=== PATIENT | male | born 1940 | race Two or more races ===

== ENCOUNTER 2017-06-21 07:25 | Emergency (ER) | payer OTHER ==
[~2017-06-21] VITALS: Ht 167.6 cm; Wt 79.8 kg
[2017-06-21 08:26] VITALS: BP 139/85
[2017-06-21 08:41] LABS: Urine Bilirubin Negative (Negative); Urine Blood 2+ /uL (Negative); Urine Color Yellow (Yellow); Urine Glucose Normal (Normal); Urine Ketone Negative (Negative); Urine Mucus FEW (None Seen); Urine Nitrite POSITIVE (Negative); Urine RBC 58 /hpf (0 - 3); Urine Urobilinogen Normal (Negative); Urine WBC Clumps PRESENT /hpf (None Seen); Urine pH 5.5 (5.0-8.0)
== END 2017-06-21 10:04 | disposition home or self-care (01) ==
LOC: ER 07:25
DX: N39.0 Urinary tract infection, site not specified (principal); Z88.0 Allergy status to penicillin
CPT/HCPCS: 51702; 81001

== ENCOUNTER 2017-06-23 14:45 | Emergency (ER) | payer OTHER, MEDICAID ==
[~2017-06-23] VITALS: Ht 165.1 cm; Wt 83.5 kg
[2017-06-23 15:51] VITALS: BP 164/79
[2017-06-23] MEDS ORDERED: SODIUM CHLORIDE 0.9% 1,000 ML IV ONE (16:44)
[2017-06-23] MEDS ORDERED: TAMSULOSIN HYDROCHLORIDE 0.4 MG CAP PO ONE (16:45)
[2017-06-23] MEDS ORDERED: cefTRIAXone 1GM/10ml IVPUSH 10 ML IV ONE (18:00)
[2017-06-23 18:10] LABS: Urine Bilirubin Negative (Negative); Urine Blood TRACE /uL (Negative); Urine Glucose Normal (Normal); Urine Ketone Negative (Negative); Urine Nitrite POSITIVE (Negative); Urine RBC 1 /hpf (0 - 3); Urine Urobilinogen Normal (Negative); Urine pH 5.5 (5.0-8.0)
[2017-06-23 18:11] LABS: Urine Color LT. ORANGE (Yellow)
[2017-06-23 18:53] LABS: Basophils # (auto) 0 uL; Basophils % (auto) 0.2 % (0.0-2.0); Eosinophils # (auto) 0 uL; Eosinophils % (auto) 0.1 % (0.0-7.0); Hematocrit 40.6 % (41.0-53.0); Hemoglobin 14.3 g/dL (13.5-17.5); Lymphocytes # (auto) 1.5 uL; Lymphocytes % (auto) 10.5 % (10.0-50.0); Mean Corpuscular Hemoglobin 33.2 pg (28.0-32.0); Mean Corpuscular Hgb Conc. 35.2 g/dL (32.0-36.0); Mean Corpuscular Volume 94.5 fL (80.0-100.0); Mean Platelet Volume 9.8 fL (6.9-10.8); Monocytes % (auto) 7.4 % (0.0-12.0); Neutrophils # (auto) 11.6 uL; Neutrophils % (auto) 81.8 % (37.0-80.0); Platelet Count (auto) 136 10^3/uL (140-450); Red Cell Distribution Width 13.6 % (11.8-14.3); White Blood Cell 14.1 10^3/uL (4.4-10.8)
[2017-06-23 18:59] LABS: Calcium 7.9 mg/dL (8.5-10.1); Magnesium 2.3 mg/dL (1.6-2.6); Potassium 3.3 mmol/L (3.5-5.1)
[2017-06-23 19:00] LABS: BUN/Creatinine Ratio 14.1
== END 2017-06-23 19:04 | disposition home or self-care (01) ==
LOC: ER 14:45
DX: N39.0 Urinary tract infection, site not specified (principal); N40.1 Benign prostatic hyperplasia with lower urinary tract symptoms; R39.11 Hesitancy of micturition; Z88.0 Allergy status to penicillin
CPT/HCPCS: 36415; 51702; 74000; 80048; 81001; 83735; 85025; 96361; 96374; 99285; J7030; 96365

== ENCOUNTER 2017-08-02 21:25 | Emergency (ER) | payer OTHER, MEDICAID ==
[~2017-08-02] VITALS: Ht 152.4 cm; Wt 68.0 kg
[2017-08-02 23:12] LABS: Basophils # (auto) 0 uL; Basophils % (auto) 0.8 % (0.0-2.0); Eosinophils # (auto) 0.1 uL; Eosinophils % (auto) 0.9 % (0.0-7.0); Hemoglobin 15.5 g/dL (13.5-17.5); Lymphocytes # (auto) 1.9 uL; Lymphocytes % (auto) 33.5 % (10.0-50.0); Mean Corpuscular Hemoglobin 32.4 pg (28.0-32.0); Mean Corpuscular Hgb Conc. 34.3 g/dL (32.0-36.0); Mean Corpuscular Volume 94.5 fL (80.0-100.0); Monocytes # (auto) 0.6 uL; Monocytes % (auto) 9.9 % (0.0-12.0); Neutrophils # (auto) 3.2 uL; Neutrophils % (auto) 54.9 % (37.0-80.0); Nucleated Red Blood Cells % 0.1 %; Platelet Count (auto) 128 10^3/uL (140-450); Red Blood Cells 4.77 10^6/uL (4.5-5.90); Red Cell Distribution Width 13.7 % (11.8-14.3); White Blood Cell 5.8 10^3/uL (4.4-10.8)
[2017-08-02 23:31] LABS: Albumin 3.8 g/dL (3.4-5.0); BUN/Creatinine Ratio 16.9; Calcium 8.6 mg/dL (8.5-10.1); Potassium 3.3 mmol/L (3.5-5.1)
[2017-08-02 23:34] LABS: Bilirubin, Total 0.4 mg/dL (0.2-1.0); Total Protein 7.9 g/dL (6.4-8.2)
[2017-08-02 23:43] LABS: Urine Bacteria FEW /hpf (None Seen); Urine Blood 2+ /uL (Negative); Urine Specific Gravity 1.009 (1.001-1.035); Urine WBC 2 /hpf (0 - 3)
[2017-08-03 05:18] VITALS: BP 144/81
== END 2017-08-03 05:20 | disposition home or self-care (01) ==
LOC: ER 21:25
DX: N40.1 Benign prostatic hyperplasia with lower urinary tract symptoms (principal); R33.9 Retention of urine, unspecified; Z88.0 Allergy status to penicillin
CPT/HCPCS: 36415; 51702; 74176; 80053; 81001; 84154; 85025

== ENCOUNTER 2019-08-17 12:48 | Emergency (ER) | payer OTHER, MEDICAID ==
[~2019-08-17] VITALS: Ht 167.6 cm; Wt 81.6 kg
[2019-08-17 16:45] VITALS: BP 140/80
== END 2019-08-17 17:15 | disposition home or self-care (01) ==
LOC: ER 12:48
DX: K04.7 Periapical abscess without sinus (principal); Z88.0 Allergy status to penicillin

== ENCOUNTER 2021-04-14 11:41 | Inpatient (IN) | payer OTHER, MEDICAID ==
[~2021-04-14] VITALS: Ht 165.1 cm; Wt 95.0 kg
[2021-04-14 12:55] LABS: Basophils # (auto) 0.1 10 ^3/uL (0-0.2); Basophils % (auto) 0.8 % (0.0-2.0); Eosinophils # (auto) 0.2 10 ^3/uL (0-0.8); Eosinophils % (auto) 2.6 % (0.0-7.0); Hematocrit 41.7 % (41.0-53.0); Hemoglobin 13.5 g/dL (13.5-17.5); Lymphocytes # (auto) 2.8 10 ^3/uL (0.4-5.4); Lymphocytes % (auto) 40.5 % (10.0-50.0); Mean Corpuscular Hemoglobin 31.9 pg (28.0-32.0); Mean Corpuscular Hgb Conc. 32.4 g/dL (32.0-36.0); Mean Corpuscular Volume 98.3 fL (80.0-100.0); Monocytes # (auto) 0.8 10 ^3/uL (0-1.3); Monocytes % (auto) 11.5 % (0.0-12.0); Neutrophils % (auto) 44.6 % (37.0-80.0); Nucleated Red Blood Cells % 0.4 %; Red Blood Cells 4.24 10^6/uL (4.5-5.90); Red Cell Distribution Width 15.9 % (11.8-14.3); White Blood Cell 6.8 10^3/uL (4.4-10.8)
[2021-04-14 12:56] LABS: Albumin 1.9 g/dL (3.4-5.0); Potassium 3.9 mmol/L (3.5-5.1)
[2021-04-14 12:58] LABS: Lactic Acid w/Reflex 3.1 mmol/L (0.4-2.0)
[2021-04-14 13:02] LABS: BUN/Creatinine Ratio 16.8; Bilirubin, Total 1.8 mg/dL (0.2-1.0); Total Protein 5.6 g/dL (6.4-8.2)
[2021-04-14] MEDS ORDERED: IPRATROPIUM BROM 0.5 MG/2.5ML INH SOL NEB PRN (14:00)
[2021-04-14] MEDS ORDERED: NITROGLYCERIN 0.4 MG SL TAB SL PRN (14:00)
[2021-04-14] MEDS ORDERED: ACETAMINOPHEN 500 MG TAB PO PRN (14:00)
[2021-04-14] MEDS ORDERED: ALBUTEROL SULF 2.5 MG/0.5ML(0.5%) NEB SOLN NEB PRN (14:00)
[2021-04-14] MEDS ORDERED: ONDANSETRON HCL 4 MG/2 ML VIAL IV PRN (14:00)
[2021-04-14] MEDS ORDERED: MORPHINE SULFATE INJECTION 2 MG/ML SYRG IV PRN ×2 (14:00)
[2021-04-14] MEDS ORDERED: IOHEXOL 350 MG/ML 100ML IJ ONE (14:04)
[2021-04-14] MEDS: SODIUM CHLORIDE 0.9% 1,000 ML IV SCH (15:17)
[2021-04-14 17:59] VITALS: BP 129/66
[2021-04-14 23:45] VITALS: BP 111/81
[2021-04-15] MEDS ORDERED: POTA10TA51 PO (02:00)
[2021-04-15] MEDS ORDERED: FURO1TAB31 PO (02:00)
[2021-04-15] MEDS: SODIUM CHLORIDE 0.9% 1,000 ML IV SCH ×2 (03:43→16:25)
[2021-04-15 05:00] VITALS: BP 129/70
[2021-04-15 06:32] LABS: Albumin 1.3 g/dL (3.4-5.0); BUN/Creatinine Ratio 22.5; Bilirubin, Total 1.5 mg/dL (0.2-1.0); Calcium 7.6 mg/dL (8.5-10.1); Total Protein 4.5 g/dL (6.4-8.2)
[2021-04-15 06:45] LABS: Basophils # (auto) 0 10 ^3/uL (0-0.2); Basophils % (auto) 0.8 % (0.0-2.0); Eosinophils # (auto) 0.2 10 ^3/uL (0-0.8); Eosinophils % (auto) 3.6 % (0.0-7.0); Hematocrit 39.3 % (41.0-53.0); Hemoglobin 12.4 g/dL (13.5-17.5); Lymphocytes # (auto) 1.7 10 ^3/uL (0.4-5.4); Lymphocytes % (auto) 30.5 % (10.0-50.0); Mean Corpuscular Hemoglobin 32.1 pg (28.0-32.0); Mean Corpuscular Hgb Conc. 31.6 g/dL (32.0-36.0); Mean Corpuscular Volume 101.3 fL (80.0-100.0); Monocytes # (auto) 0.6 10 ^3/uL (0-1.3); Monocytes % (auto) 11.1 % (0.0-12.0); Nucleated Red Blood Cells % 0.5 %; Red Blood Cells 3.88 10^6/uL (4.5-5.90); Red Cell Distribution Width 16.2 % (11.8-14.3); White Blood Cell 5.5 10^3/uL (4.4-10.8)
[2021-04-15 09:00] VITALS: BP 11/67
[2021-04-15] MEDS: ENOXAPARIN SOD 40 MG/0.4 ML SYRINGE SC SCH (10:00)
[2021-04-15] MEDS: levoFLOXacin 500MG 100 ML IV SCH (11:13)
[2021-04-15 12:05] LABS: INR 1.28 (0.9-1.15); Partial Thromboplastin Time 27.2 sec (23.6-33.0)
[2021-04-15 17:00] VITALS: BP 116/64
[2021-04-15 22:00] VITALS: BP 121/73
[2021-04-16 05:27] LABS: Basophils # (auto) 0 10 ^3/uL (0-0.2); Basophils % (auto) 0.8 % (0.0-2.0); Eosinophils # (auto) 0.2 10 ^3/uL (0-0.8); Eosinophils % (auto) 3.5 % (0.0-7.0); Hematocrit 38.6 % (41.0-53.0); Hemoglobin 12.7 g/dL (13.5-17.5); Lymphocytes # (auto) 1.9 10 ^3/uL (0.4-5.4); Lymphocytes % (auto) 31.9 % (10.0-50.0); Mean Corpuscular Hemoglobin 32.4 pg (28.0-32.0); Mean Corpuscular Hgb Conc. 32.9 g/dL (32.0-36.0); Mean Corpuscular Volume 98.4 fL (80.0-100.0); Monocytes # (auto) 0.5 10 ^3/uL (0-1.3); Monocytes % (auto) 8.2 % (0.0-12.0); Neutrophils # (auto) 3.4 10 ^3/uL (1.6-8.6); Neutrophils % (auto) 55.6 % (37.0-80.0); Nucleated Red Blood Cells % 0.3 %; Red Blood Cells 3.92 10^6/uL (4.5-5.90); Red Cell Distribution Width 16.2 % (11.8-14.3); White Blood Cell 6.1 10^3/uL (4.4-10.8)
[2021-04-16 05:43] LABS: Potassium 3.7 mmol/L (3.5-5.1)
[2021-04-16 05:48] LABS: BUN/Creatinine Ratio 20.8; Calcium 7.8 mg/dL (8.5-10.1); Magnesium 2.5 mg/dL (1.6-2.6)
[2021-04-16 05:54] VITALS: BP 120/66
[2021-04-16 08:01] LABS: Urine Bacteria FEW /hpf (None Seen); Urine Blood TRACE /uL (Negative); Urine Mucus FEW (None Seen); Urine WBC 58 /hpf (0 - 3)
[2021-04-16] MEDS: SODIUM CHLORIDE 0.9% 1,000 ML IV SCH (08:22)
[2021-04-16 09:00] VITALS: BP 106/63
[2021-04-16] MEDS: levoFLOXacin 500MG 100 ML IV SCH (10:41)
[2021-04-16] MEDS: POTASSIUM CHL 10 Meq TABLET PO SCH (10:41)
[2021-04-16] MEDS: ENOXAPARIN SOD 40 MG/0.4 ML SYRINGE SC SCH (10:42)
[2021-04-16] MEDS: FUROSEMIDE 20 MG TAB PO SCH (10:42)
[2021-04-16 13:00] VITALS: BP 98/56
[2021-04-16 17:00] VITALS: BP 102/61
[2021-04-16 22:00] VITALS: BP 104/65
[2021-04-17] MEDS ORDERED: FLEET ENEMA(ADULT) 135 ML PR ONE
[2021-04-17 05:00] VITALS: BP 101/51
[2021-04-17 06:26] LABS: Potassium 3.7 mmol/L (3.5-5.1)
[2021-04-17 06:33] LABS: Magnesium 2.3 mg/dL (1.6-2.6)
[2021-04-17 09:00] VITALS: BP 99/61
[2021-04-17] MEDS: POTASSIUM CHL 10 Meq TABLET PO SCH (10:16)
[2021-04-17] MEDS: levoFLOXacin 500MG 100 ML IV SCH (10:16)
[2021-04-17] MEDS: FUROSEMIDE 20 MG TAB PO SCH (10:16)
[2021-04-17] MEDS: ENOXAPARIN SOD 40 MG/0.4 ML SYRINGE SC SCH (10:17)
[2021-04-17] MEDS ORDERED: SACC250C PO (10:36)
[2021-04-17] MEDS ORDERED: LEVO750T8 PO (10:36)
[2021-04-17] MEDS ORDERED: ALBUAER3 IN (10:39)
[2021-04-17 17:00] VITALS: BP 102/65
[2021-04-17 22:00] VITALS: BP 96/62
[2021-04-18 01:27] VITALS: BP 96/62
[2021-04-18 05:00] VITALS: BP 107/56
[2021-04-18 09:00] VITALS: BP 105/56
[2021-04-18] MEDS: POTASSIUM CHL 20 Meq TABLET PO SCH (10:36)
[2021-04-18] MEDS: FLORASTOR (S. BOULARDII) 250 MG CAP PO SCH (10:36)
[2021-04-18] MEDS: FUROSEMIDE 40 MG TAB PO SCH (10:37)
[2021-04-18] MEDS: levoFLOXacin 250 MG TAB PO SCH (10:37)
[2021-04-18] MEDS: ENOXAPARIN SOD 40 MG/0.4 ML SYRINGE SC SCH (10:37)
[2021-04-18 12:44] VITALS: BP 93/51
[2021-04-18 17:00] VITALS: BP 88/48
[2021-04-18 22:00] VITALS: BP 105/59
[2021-04-19 05:00] VITALS: BP 92/53
[2021-04-19 09:00] VITALS: BP 96/55
[2021-04-19] MEDS: FUROSEMIDE 40 MG TAB PO SCH (10:50)
[2021-04-19] MEDS: FLORASTOR (S. BOULARDII) 250 MG CAP PO SCH (10:51)
[2021-04-19] MEDS: POTASSIUM CHL 20 Meq TABLET PO SCH (10:51)
[2021-04-19] MEDS: levoFLOXacin 250 MG TAB PO SCH (10:52)
[2021-04-19] MEDS: ENOXAPARIN SOD 40 MG/0.4 ML SYRINGE SC SCH (10:52)
[2021-04-19 13:00] VITALS: BP 91/63
[2021-04-19 17:59] VITALS: BP 125/72
[2021-04-19 22:00] VITALS: BP 113/67
[2021-04-20 04:15] VITALS: BP 105/55
[2021-04-20 09:00] VITALS: BP 106/54
[2021-04-20] MEDS: FLORASTOR (S. BOULARDII) 250 MG CAP PO SCH (09:07)
[2021-04-20] MEDS: POTASSIUM CHL 20 Meq TABLET PO SCH (09:07)
[2021-04-20] MEDS: ENOXAPARIN SOD 40 MG/0.4 ML SYRINGE SC SCH (09:09)
[2021-04-20] MEDS: FUROSEMIDE 40 MG TAB PO SCH (09:09)
[2021-04-20] MEDS: levoFLOXacin 250 MG TAB PO SCH (09:11)
[2021-04-20 10:53] VITALS: BP 106/54
[2021-04-20 13:00] VITALS: BP 93/54
== END 2021-04-20 15:30 | DRG 432 ==
LOC: EDBD 11:41 → ER 11:41 → TELE 13:53 → TELE-WESTW 23:24 → WEST WING 04-17 09:49
PROVIDERS: ADMIT Nurse Practitioner Acute Care; ATTEND Internal Medicine
PROC: 0W9G3ZZ Drainage of Peritoneal Cavity, Percutaneous Approach (ICD-10-PCS; principal; 2021-04-15)
DX: K74.60 Unspecified cirrhosis of liver (principal); J96.01 Acute respiratory failure with hypoxia; E43 Unspecified severe protein-calorie malnutrition; J18.9 Pneumonia, unspecified organism; R18.8 Other ascites; J98.11 Atelectasis; N39.0 Urinary tract infection, site not specified; J90 Pleural effusion, not elsewhere classified; C61 Malignant neoplasm of prostate; N13.9 Obstructive and reflux uropathy, unspecified; N40.0 Benign prostatic hyperplasia without lower urinary tract symptoms; Z82.49 Family history of ischemic heart disease and other diseases of the circulatory system; Z85.46 Personal history of malignant neoplasm of prostate; Z74.01 Bed confinement status; Z68.34 Body mass index [BMI] 34.0-34.9, adult; Z20.822 Contact with and (suspected) exposure to COVID-19; Z88.0 Allergy status to penicillin
CPT/HCPCS: 36415; 36600; 71045; 71260; 74177; 76942; 80048; 80053; 81001; 82805; 83605; 83735; 83880; 84132; 84484; 85025; 85379; 85610; 85730; 87040; 87081; 87086; 87205; 87426; 93005; 93970; 96360; 97110; 97530; 99291; G0378; J1956